=== PATIENT | female | born 1975 | race Caucasian/White ===

== ENCOUNTER → 2016-05-19 | Outpatient (CLI) | payer OTHER | END | disposition home or self-care (01) | LOC: LAB.O 08:19 | PROVIDERS: ATTEND Obstetrics & Gynecology | DX: O20.0 Threatened abortion (principal) ==

== ENCOUNTER → 2016-05-22 | Outpatient (CLI) | payer OTHER | END | disposition home or self-care (01) | LOC: LAB.O 12:17 | PROVIDERS: ATTEND Obstetrics & Gynecology | DX: R53.81 Other malaise (principal); R63.5 Abnormal weight gain ==

== ENCOUNTER → 2016-09-12 | Outpatient (CLI) | payer OTHER | END | disposition home or self-care (01) | LOC: LAB 08:10 | PROVIDERS: ATTEND Specialist | DX: N97.9 Female infertility, unspecified (principal) ==

== ENCOUNTER → 2016-12-18 | Outpatient (CLI) | payer OTHER | END | disposition home or self-care (01) | LOC: LAB.O 09:57 | PROVIDERS: ATTEND Obstetrics & Gynecology | DX: O26.20 Pregnancy care for patient with recurrent pregnancy loss, unspecified trimester (principal) ==

== ENCOUNTER → 2017-01-07 | Outpatient (CLI) | payer OTHER ==
--- NOTE | 2017-01-07 22:52 | RAD ---
EXAM DESCRIPTION: Chest,2 Views CLINICAL HISTORY: USPECIFIED ASTHMA COMPARISON: None. FINDINGS: Two views of the chest are submitted. Cardiac silhouette appears normal. No focal parenchymal or pleural disease. No acute bony abnormality. The lungs are not hyperinflated. There is no significant pulmonary vascular engorgement. IMPRESSION: No evidence of acute cardiopulmonary disease. Electronically signed by: Luis Aponte 01/07/2017 10:51 PM [employer]
== END | disposition home or self-care (01) ==
LOC: RAD 10:13
PROVIDERS: ATTEND Nurse Practitioner Family
DX: J45.909 Unspecified asthma, uncomplicated (principal)

== ENCOUNTER → 2017-04-03 | Outpatient (CLI) | payer OTHER | LOC: LAB.O 10:42 | PROVIDERS: ATTEND Obstetrics & Gynecology | DX: Z3A.01 Less than 8 weeks gestation of pregnancy (principal) ==

== ENCOUNTER → 2017-04-06 | Outpatient (CLI) | payer OTHER | LOC: CC 17:37 | PROVIDERS: ATTEND Obstetrics & Gynecology | DX: O20.0 Threatened abortion (principal) ==

== ENCOUNTER → 2017-04-12 | Outpatient (CLI) | payer OTHER | LOC: LAB.O 09:08 | PROVIDERS: ATTEND Obstetrics & Gynecology | DX: O00.109 Unspecified tubal pregnancy without intrauterine pregnancy (principal) ==

== ENCOUNTER 2018-11-15 15:16 | Emergency (ER) | payer SELFPAY ==
[2018-11-15] MEDS ORDERED: ONDANSETRON INJ 4 MG/2 ML VIAL IV ONE ×2 (15:45→19:41)
[2018-11-15] MEDS ORDERED: SODIUM CHLORIDE 0.9% (FLUSH) 10 ML SYG IV PRN (15:45)
[2018-11-15] MEDS ORDERED: ALUM & MAG HYDROX-SIMETHICONE 30 ML, LIDOCAINE VISCOUS 2% 15 ML PO ONE ×2 (15:46)
[2018-11-15] MEDS ORDERED: LIDOCAINE HCL 2% (MOUTH-THROAT) 15 ML UD ONE (15:55)
[2018-11-15] MEDS ORDERED: ALUM & MAG HYDROX-SIMETHICONE 30 ML UD ONE (15:55)
--- NOTE | 2018-11-15 16:09 | RAD ---
EXAM DESCRIPTION: Chest,1 View CLINICAL HISTORY: 43 years Female, chest pain COMPARISON: Radiograph of the chest dated 01/07/2017. TECHNIQUE: AP radiograph of the chest was obtained. FINDINGS: Trachea is midline.The cardiomediastinal silhouette is normal in size. The pulmonary vasculature is within normal limits.The lungs are clear with no acute consolidation.No evidence of pleural effusions. IMPRESSION: No acute cardiopulmonary process. Electronically signed by: Yessica Taylor MD 11/15/2018 4:07 PM CDT
--- NOTE | 2018-11-15 17:26 | ED.PDOC ---
History of Present Illness - General Chief Complaint: Chest Pain/ID Stated Complaint: chest pain Time Seen by Provider: 11/15/18 15:45 Source: patient, RN notes reviewed, Vital Signs reviewed Exam Limitations: no limitations - History of Present Illness Initial Comments: patient is a 43-year-old white female who presents with complaints of chest pain and shortness of breath. She states the pain is in the lower chest, radiates nausea. There is no vomiting. Patient denies any fever, chills, headaches, dizziness, weakness, paresthesias, vomiting or diarrhea. Nothing seems to worsen or improve the pain. It is sharp and cramping in nature. It was acute in onset. Timing/Duration: 1-3 hours Severity: severe Improving Factors: nothing Worsening Factors: nothing Associated Symptoms: chest pain, loss of appetite, nausea/vomiting - only nausea, shortness of breath Allergies/Adverse Reactions: Allergies Sulfa Antibiotics Allergy (Verified 09/12/15 18:29) Home Medications: Ambulatory Orders Control Pill 1 ea PO DAILY 09/12/15 Review of Systems - Review of Systems Constitutional: States: see HPI. Denies: chills, fever EENTM: States: see HPI Respiratory: States: see HPI, short of breath Cardiology: States: see HPI, chest pain - worse with deep inspiration Gastrointestinal/Abdominal: States: abdominal pain, nausea. Denies: diarrhea, vomiting Genitourinary: States: no symptoms reported Musculoskeletal: States: no symptoms reported Skin: States: no symptoms reported Neurological: States: no symptoms reported All other Systems: Reviewed and Negative Past Medical History (General) - Patient Medical History Hx Seizures: No Hx Stroke: No Hx Dementia: No Hx Asthma: No Hx of COPD: No Hx Cardiac Disorders: No Hx Congestive Heart Failure: No Hx Pacemaker: No Hx Hypertension: No Hx Thyroid Disease: No Hx Diabetes: No Hx Gastroesophageal Reflux: No Hx Renal Disease: No Surgical History: other - Vaccination History Hx Tetanus, Diphtheria Vaccination: No Hx Influenza Vaccination: No - Social History Hx Tobacco Use: No Hx Alcohol Use: Yes - Female History Patient is a Female of Child Bearing Age (10 -59 yrs old): Yes Patient : No Family Medical History - Family History Mother Family History: Unknown Living Status: Unknown Physical Exam - Physical Exam General Appearance: Alert, Anxious, Obvious distress, Well Developed, Well Groomed, Well Hydrated, Well Nourished Eye Exam: bilateral normal Ears, Nose, Throat: hearing grossly normal, normal ENT inspection, normal pharynx Neck: full range of motion, supple, normal inspection Respiratory: chest non-tender, lungs clear, normal breath sounds, no respiratory distress, no accessory muscle use, other - pain is worse with deep inspiration Cardiovascular/Chest: normal peripheral pulses, regular rate, rhythm, no edema, no gallop, no JVD, no murmur Peripheral Pulses: radial,right: 2+, radial,left: 2+ Gastrointestinal/Abdominal: normal bowel sounds, tenderness - midepigastric Back Exam: normal inspection, no CVA tenderness, no vertebral tenderness Extremity: normal range of motion, non-tender, normal inspection, no pedal edema, no calf tenderness 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 Lipase of greater than 5000. CT scan does not show any pseudocyst. I did discuss this with the submission and they defer admission at this time. They would prefer this patient be seen by GI specialist request us to transfer the patient. I've discussed this plan of care with the patient and her and they voice understanding and agreement with the plan of care. - Results/Orders Results/Orders: 11/15/18 15:45 IV Care:Saline Lock per Protoc QSHIFT Sodium Chloride 0.9% (Flush) [Saline Flush Syringe] 10 ml IV PRN PRN EKG Stat Pulse Ox Stat 11/15/18 18:27 Abdomen/Pelvis w/Contrast [CT] Stat 11/15/18 18:28 Hold Metformin x 48Hrs [id number] Laboratory Results - last 24 hr 11/15/18 11/15/18 11/15/18 15:59 15:59 15:59 WBC 6.0 RBC 5.39 Hgb 12.6 Hct 39.2 MCV 72.7 L MCH 23.5 L MCHC 32.3 L RDW 17.2 H Plt Count 213 MPV 9.0 Absolute Neuts (auto) 3.40 Absolute Lymphs (auto) 2.10 Absolute Monos (auto) 0.40 Absolute Eos (auto) 0.00 Absolute Basos (auto) 0.10 Neutrophils % 56.8 Lymphocytes % 34.8 Monocytes % 6.3 Eosinophils % 0.8 L Basophils % 1.3 PT 9.9 INR 0.99 PTT (SP) 23.9 Sodium 137 Potassium 3.7 Chloride 103 Carbon Dioxide 23 Anion Gap 14.7 BUN 22 H Creatinine 0.76 BUN/Creatinine Ratio 28.9 H Random Glucose 90 Serum Osmolality 276.7 Calcium 9.1 Magnesium 2.2 Total Bilirubin 0.7 Direct Bilirubin 0.2 Indirect Bilirubin 0.5 AST 43 H ALT 26 Alkaline Phosphatase 56 Creatine Kinase 153 H CK-MB (CK-2) 2.8 CK-MB (CK-2) % Not Reportable Troponin I < 0.02 B-Natriuretic Peptide 17.0 Serum Total Protein 7.1 Albumin 4.1 Lipase 5631 H EKG on 15 November 2018 1521 hrs.: Sinus rhythm with a short NV at 72 bpm, normal axis deviation, no ST or T-wave changes, otherwise normal EKG. No EKG for comparison. EXAM DESCRIPTION: Chest,1 View CLINICAL HISTORY: 43 years Female, chest pain COMPARISON: Radiograph of the chest dated 01/07/2017. TECHNIQUE: AP radiograph of the chest was obtained. FINDINGS: Trachea is midline.The cardiomediastinal silhouette is normal in size. The pulmonary vasculature is within normal limits.The lungs are clear with no acute consolidation.No evidence of pleural effusions. IMPRESSION: No acute cardiopulmonary process. Electronically signed by: Yessica Taylor MD 11/15/2018 4:07 PM EXAM: Abdomen/Pelvis w/Contrast \ CLINICAL INDICATION: Epigastric pain, elevated lipase COMPARISON: There is no previous study for comparison. TECHNIQUE: The CT scan was done using contiguous axial 5 mm postcontrast sections through the abdomen and pelvis including IV contrast. This exam was performed according to our departmental dose- optimization program, which includes automated exposure control, adjustment of the mA and/or kV according to patient size and/or use of iterative reconstruction technique. FINDINGS: The visualized portions of the lung bases are clear. The liver and gallbladder are unremarkable. Bilateral breast implants are incidentally noted. There are mild inflammatory changes about the pancreas consistent with acute pancreatitis. The adrenal glands, spleen, and kidneys are unremarkable. There is no abscess or pseudocyst. There is no free fluid or free air. Diverticulosis of the colon is noted with no findings of acute diverticulitis. The appendix is normal. IMPRESSION: 1. Mild acute pancreatitis. 2. Diverticulosis. Electronically signed by: Devendra Gutierrez MD 11/15/2018 7:14 PM CDT Departure - Departure Clinical Impression: Pancreatitis Qualifiers: Chronicity: acute Pancreatitis type: other Acute pancreatitis complication: no infection or necrosis Qualified Code(s): K85.80 - Other acute pancreatitis without necrosis or infection Disposition: Transfer to Hospital Condition: Good Referrals: Wild Prabhakar MD [Primary Care Provider] - 1-2 Weeks Home Medications: Ambulatory Orders Control Pill 1 ea PO DAILY 09/12/15 Transfer to Outside Facility - Transfer Information Decision to Transfer Date: 11/15/18 Decision to Transfer Time: 19:15 Reason for Transfer: required specialist not available - gastroenterology Accepting Facility: [facility]
--- NOTE | 2018-11-15 19:16 | CT ---
EXAM: Abdomen/Pelvis w/Contrast CLINICAL INDICATION: Epigastric pain, elevated lipase COMPARISON: There is no previous study for comparison. TECHNIQUE: The CT scan was done using contiguous axial 5 mm postcontrast sections through the abdomen and pelvis including IV contrast. This exam was performed according to our departmental dose-optimization program, which includes automated exposure control, adjustment of the mA and/or kV according to patient size and/or use of iterative reconstruction technique. FINDINGS: The visualized portions of the lung bases are clear. The liver and gallbladder are unremarkable. Bilateral breast implants are incidentally noted. There are mild inflammatory changes about the pancreas consistent with acute pancreatitis. The adrenal glands, spleen, and kidneys are unremarkable. There is no abscess or pseudocyst. There is no free fluid or free air. Diverticulosis of the colon is noted with no findings of acute diverticulitis. The appendix is normal. IMPRESSION: 1. Mild acute pancreatitis. 2. Diverticulosis. Electronically signed by: Devendra Gutierrez MD 11/15/2018 7:14 PM CDT
[2018-11-15] MEDS ORDERED: HYDROmorphone HCL INJ 2 MG/ML VIAL IV ONE (19:40)
[2018-11-15 20:43] VITALS: TEMP 98.5
[2018-11-15 20:45] VITALS: BP 131/79; O2SAT 99
== END 2018-11-15 20:55 | disposition short-term general hospital (02) ==
LOC: ER 15:16
DX: K85.80 Other acute pancreatitis without necrosis or infection (principal); K57.30 Diverticulosis of large intestine without perforation or abscess without bleeding; R07.9 Chest pain, unspecified; R06.02 Shortness of breath; Z88.2 Allergy status to sulfonamides
CPT/HCPCS: 71045; 74177; 80048; 80061; 80076; 82550; 82553; 83690; 83880; 84484; 85025; 85610; 85730; 93005; J1170; J2405